=== PATIENT | female | born 1965 | race Two or more races ===

== ENCOUNTER → 2018-06-13 | Emergency (ER) | payer OTHER ==
[~2018-06-13] VITALS: Ht 160 cm; Wt 106.6 kg
[~2018-06-13] MED LIST: VISTARIL50 MG PO; XANAX1 MG; XANAX1 MG PO
== END | disposition home or self-care (01) ==
LOC: ER 00:47
DX: F41.0 Panic disorder [episodic paroxysmal anxiety] (principal); F43.21 Adjustment disorder with depressed mood; F06.4 Anxiety disorder due to known physiological condition